=== PATIENT | male | born 1965 | race Caucasian/White ===

== ENCOUNTER 2019-03-15 10:39 | Emergency (ER) | payer OTHER ==
[~2019-03-15] VITALS: Wt 90.7 kg
[~2019-03-15 10:39] MED LIST: ADVIL,MOTRIN,R200 MG PO; AFRIN 15 ML15 M1 NAS; BIAXIN500 MG PO; CLARITIN10 MG PO; CLINDAMYCIN150 MG PO; FLUCONAZOLE100 MG PO; FLUONAZOLE200 M1 PO; HYDROCODONE-AC1 EAC1 PO; TRAMADOL HCL50 MG PO; TRIMOX500 MG PO; VIBRAMYCIN100 MG PO; VITAMIN D5000 UNI1 PO
[2019-03-15] MEDS ORDERED: PREDNISONE20 M1 PO (11:25)
[2019-03-15] MEDS ORDERED: BENADRYL25 M2 PO (11:25)
[2019-03-15] MEDS ORDERED: VIBRAMYCIN100 MG PO (11:25)
== END 2019-03-15 11:35 | disposition home or self-care (01) ==
LOC: ED 10:39
DX: L25.9 Unspecified contact dermatitis, unspecified cause (principal); L03.114 Cellulitis of left upper limb; F17.200 Nicotine dependence, unspecified, uncomplicated; Z88.0 Allergy status to penicillin; Z88.8 Allergy status to other drugs, medicaments and biological substances; Z79.899 Other long term (current) drug therapy

== ENCOUNTER 2020-07-19 06:47 | Emergency (ER) | payer OTHER ==
[~2020-07-19] VITALS: Ht 167.6 cm; Wt 90.7 kg
[~2020-07-19 06:47] MED LIST changes: +BENADRYL25 M2 PO; +PREDNISONE20 M1 PO
[2020-07-19] MEDS ORDERED: CLINDAMYCIN HC300 MG PO (07:18)
[2020-07-19] MEDS ORDERED: TYLENOL325 M1 PO (07:18)
[2020-07-19] MEDS ORDERED: NAPROXEN250 MG PO (07:18)
== END 2020-07-19 07:53 | disposition home or self-care (01) ==
LOC: ED 06:47
DX: K02.9 Dental caries, unspecified (principal); E66.9 Obesity, unspecified; F17.200 Nicotine dependence, unspecified, uncomplicated; Z88.0 Allergy status to penicillin; Z88.8 Allergy status to other drugs, medicaments and biological substances; Z79.899 Other long term (current) drug therapy; Z98.890 Other specified postprocedural states

== ENCOUNTER 2024-07-04 13:40 | Emergency (ER) | payer OTHER ==
[~2024-07-04] VITALS: Ht 167.6 cm; Wt 90.7 kg
[~2024-07-04 13:40] MED LIST changes: +CLINDAMYCIN HC300 MG PO; +NAPROXEN250 MG PO; +TYLENOL325 M1 PO
[2024-07-04 14:32] LABS: BASO # 0.1 10*3/uL (0.0-0.1); BASO % 0.9 % (0.0-1.0); EOS # 1.3 10*3/uL (0.0-0.4); EOS % 13.3 % (1.0-4.0); HEMATOCRIT 49.4 % (42.0-52.0); MEAN CORPUSCULAR HGB 32.1 pg (27.0-31.0); MEAN CORPUSCULAR HGB CONC 33.8 g/dl (33.0-37.0); MEAN PLATELET VOLUME 10.1 fl (9.6-12.3); MONO % 9.8 % (3.0-9.0); NEUT # 4.9 10*3/uL (2.3-7.9); NEUT % 50.2 % (47.0-73.0); PLATELET COUNT AUTOMATED 196 10*3/uL (130-400); RED CELL DISTRI WIDTH 12.3 % (0-14.5); WHITE BLOOD COUNT 9.8 10*3/uL (4.8-10.8)
[2024-07-04 15:06] LABS: BUN 14 mg/dl (9-23); CHLORIDE 104 mmol/L (98-107); POTASSIUM 3.6 mmol/L (3.4-5.1)
[2024-07-04] MEDS ORDERED: hydrALAZINE hydrochloride 20 MG/ML VIAL IV ONE (15:15)
== END 2024-07-04 18:23 | disposition left against medical advice (07) ==
LOC: ED 13:40
PROVIDERS: Internal Medicine
DX: I16.0 Hypertensive urgency (principal); M79.602 Pain in left arm; Z53.29 Procedure and treatment not carried out because of patient's decision for other reasons; F17.200 Nicotine dependence, unspecified, uncomplicated; F10.10 Alcohol abuse, uncomplicated; Z88.0 Allergy status to penicillin; Z88.8 Allergy status to other drugs, medicaments and biological substances; Z98.890 Other specified postprocedural states

== ENCOUNTER 2024-07-11 17:29 | Emergency (ER) | payer OTHER ==
[~2024-07-11] VITALS: Ht 167.6 cm; Wt 90.7 kg
[2024-07-11] MEDS ORDERED: hydrALAZINE hydrochloride 20 MG/ML VIAL IV ONE (18:05)
[2024-07-11 18:26] LABS: BASO # 0.1 10*3/uL (0.0-0.1); BASO % 0.8 % (0.0-1.0); EOS # 0.9 10*3/uL (0.0-0.4); EOS % 11.3 % (1.0-4.0); HEMATOCRIT 45.4 % (42.0-52.0); MEAN CELL VOLUME 95.6 fl (80.0-94.0); MEAN CORPUSCULAR HGB 31.8 pg (27.0-31.0); MEAN CORPUSCULAR HGB CONC 33.3 g/dl (33.0-37.0); MEAN PLATELET VOLUME 9.8 fl (9.6-12.3); MONO # 0.8 10*3/uL (0.1-1.0); MONO % 9.9 % (3.0-9.0); NEUT # 4.4 10*3/uL (2.3-7.9); NEUT % 52.9 % (47.0-73.0); PLATELET COUNT AUTOMATED 179 10*3/uL (130-400); RED BLOOD COUNT 4.75 10*6/uL (4.50-5.90); RED CELL DISTRI WIDTH 12.4 % (0-14.5); WHITE BLOOD COUNT 8.4 10*3/uL (4.8-10.8)
[2024-07-11] MEDS ORDERED: NORVASC10 MG PO (18:40)
[2024-07-11 18:44] LABS: ACT PARTIAL THROMBO TIME 27.1 SECONDS (20.0-32.1)
[2024-07-11 18:46] LABS: ALKALINE PHOSPHATASE 67 U/L (46-116); BUN 14 mg/dl (9-23); CHLORIDE 105 mmol/L (98-107); LIPASE 24 U/L (12-53); POTASSIUM 3.7 mmol/L (3.4-5.1); SGPT/ALT 43 U/L (5-49); TOTAL PROTEIN 6.8 gm/dL (6.0-8.0)
== END 2024-07-11 18:54 | disposition home or self-care (01) ==
LOC: ED 17:29
PROVIDERS: Emergency Medicine
DX: I10 Essential (primary) hypertension (principal); R06.00 Dyspnea, unspecified; R10.2 Pelvic and perineal pain; F17.200 Nicotine dependence, unspecified, uncomplicated; F10.10 Alcohol abuse, uncomplicated; Z88.0 Allergy status to penicillin; Z88.8 Allergy status to other drugs, medicaments and biological substances; Z98.890 Other specified postprocedural states